=== PATIENT | female | born 1970 | race Caucasian/White ===

== ENCOUNTER → 2016-08-19 | Outpatient (CLI) | payer OTHER | LOC: SLEEP-COR 15:35 | DX: G47.33 Obstructive sleep apnea (adult) (pediatric) (principal); J41.0 Simple chronic bronchitis; E66.9 Obesity, unspecified; R06.09 Other forms of dyspnea; R94.2 Abnormal results of pulmonary function studies | CPT/HCPCS: 95811 ==